=== PATIENT | male | born 1955 | race Caucasian/White ===

== ENCOUNTER 2016-12-24 09:45 | Emergency (ER) | payer OTHER ==
[2016-12-24 09:47] VITALS: BP 148/69; PULSE 130; RESP 30; TEMP 98.2; O2SAT 98
[2016-12-24] MEDS ORDERED: HYDROmorphone HCL PF 1 MG/ML VIAL IV PUSH ONE (10:15)
--- NOTE | 2016-12-24 10:31 | PD ---
HPI Chief Complaint: GI Complaint Time Seen by Provider: 10:12 Travel History International Travel<30 days: No Contact w/Intl Traveler<30days: No History of Present Illness HPI This is a 61-year-old male who presents to the emergency department with a 1-1/ 2 year history of severe pain in his rectum and in his penis, intermittent, worse after bowel movements, sharp, feeling like a spasm. He says he's seen multiple specialists for this in the past but they can ever figure out what it is. He says that he has seen 7 GI doctors and they've done sigmoidoscopies and colonoscopies but haven't been able to find anything. He also has seen a urologist who diagnosed him with an enlarged prostate but otherwise doesn't see any etiology of his pain. He went to the [facility] over the summer but they weren't able to figure out what it was. He says he was just discharged yesterday from [facility] Past Medical History Medical History: Denies Significant Hx Past Surgical History Appendectomy: Yes Social History Alcohol Use: No Tobacco Use: No Substance Use: No Allergies-Medications (Allergen,Severity, Reaction): Coded Allergies: No Known Allergies (Unverified , 12/24/16) Reported Meds & Prescriptions Reported Meds & Active Scripts Active No Active Prescriptions or Reported Medications Review of Systems Except as stated in HPI: all other systems reviewed are Neg Physical Exam Narrative GENERAL: Screaming and thrashing and pain SKIN: Warm and dry. HEAD: Atraumatic. Normocephalic. EYES: Pupils equal and round. No injection or drainage. ENT: Moist mucous membranes NECK: Trachea midline. CARDIOVASCULAR: Regular rate and rhythm. No murmur appreciated. RESPIRATORY: Clear to auscultation. Breath sounds equal bilaterally. GASTROINTESTINAL: Abdomen soft, diffusely tender, tender to palpation along the rectum and perirectal area as well : Tender to palpation along the scrotum as well as the penis, otherwise genitals are normal in appearance MUSCULOSKELETAL: No obvious deformities. NEUROLOGICAL: Awake and alert. No obvious cranial nerve deficits. Moving all extremities. PSYCHIATRIC: Appropriate mood and affect; insight and judgment normal. Data Data Last Documented VS Vital Signs Date Time Temp Pulse Resp B/P Pulse Ox O2 Delivery O2 Flow Rate FiO2 12/24/16 12:49 97.8 81 17 130/76 98 Room Air Orders Complete Blood Count With Diff (12/24/16 10:14) Comprehensive Metabolic Panel (12/24/16 10:14) Lactic Acid (12/24/16 10:14) ^ Insert Iv (12/24/16 10:14) Us Testicles W Doppler (12/24/16 ) Urinalysis - C+S If Indicated (12/24/16 10:14) ^ Insert Iv (12/24/16 10:14) Hydromorphone Pf Inj (Dilaudid Pf Inj) (12/24/16 10:15) Sodium Chlor 0.9% 1000 Ml Inj (Ns 1000 M (12/24/16 11:15) Lorazepam Inj (Ativan Inj) (12/24/16 11:30) Cath For Specimen (12/24/16 12:22) Labs Laboratory Tests Test 12/24/16 10:27 White Blood Count 6.7 TH/MM3 Red Blood Count 4.75 MIL/MM3 Hemoglobin 15.0 GM/DL Hematocrit 42.1 % Mean Corpuscular Volume 88.6 FL Mean Corpuscular Hemoglobin 31.6 PG Mean Corpuscular Hemoglobin 35.7 % Concent Red Cell Distribution Width 13.1 % Platelet Count 261 TH/MM3 Mean Platelet Volume 8.3 FL Neutrophils (%) (Auto) 80.2 % Lymphocytes (%) (Auto) 13.1 % Monocytes (%) (Auto) 6.2 % Eosinophils (%) (Auto) 0.0 % Basophils (%) (Auto) 0.5 % Neutrophils # (Auto) 5.3 TH/MM3 Lymphocytes # (Auto) 0.9 TH/MM3 Monocytes # (Auto) 0.4 TH/MM3 Eosinophils # (Auto) 0.0 TH/MM3 Basophils # (Auto) 0.0 TH/MM3 CBC Comment DIFF FINAL Differential Comment Sodium Level 129 MEQ/L Potassium Level 4.1 MEQ/L Chloride Level 96 MEQ/L Carbon Dioxide Level 21.7 MEQ/L Anion Gap 11 MEQ/L Blood Urea Nitrogen 8 MG/DL Creatinine 1.02 MG/DL Estimat Glomerular Filtration 74 ML/MIN Rate Random Glucose 102 MG/DL Lactic Acid Level 2.9 mmol/L Calcium Level 8.8 MG/DL Total Bilirubin 0.8 MG/DL Aspartate Amino Transf 30 U/L (AST/SGOT) Alanine Aminotransferase 37 U/L (ALT/SGPT) Alkaline Phosphatase 60 U/L Total Protein 7.7 GM/DL Albumin 4.1 GM/DL MDM Medical Decision Making Medical Screen Exam Complete: Yes Emergency Medical Condition: Yes Interpretation(s) Afebrile, tachycardic, hypertensive No leukocytosis Mild hyponatremia Lactic acid is 2.9 Last 24 hours Impressions Scrotum Ultrasound 12/24/16 0000 Signed Impressions: Service Date/Time: December 10:47 - CONCLUSION: 1. No abnormality is identified to explain the chronic testicle pain. No acute finding is identified. 2. Small bilateral hydroceles. Bari Parker MD Differential Diagnosis Testicular torsion, prostatitis, perirectal abscess Narrative Course This is a 61-year-old male who presents to the emergency department with severe pain in his penis that goes to his rectum. He's had it for years. He is squirming in the bed from discomfort. He was placed in a monitor and an IV was established. Labs were obtained which were reassuring with a mildly elevated lactic acid which is likely in the setting of some dehydration. An ultrasound of the testicles was obtained which was unremarkable. Patient reports he's had multiple CT scans in the past by don't think that would add to his workup today. I did speak to the on-call [facility] physician and they gave me some information regarding the patient's history. It looks like this is been going on for at least 3 years he has seen Dr. Palmer as well as the other GI group in [facility]. They've done anorectal manometry and he's been diagnosed with pelvic floor dysfunction and proctalgia fugax. He has been prescribed nifedipine cream and nerve blocks has been performed. I don't think an inpatient workup is going to benefit this patient and I don't think he would benefit from IV opiates or any additional controlled substance pain medication. He needs to follow up as an outpatient. Patient will be discharged home. Diagnosis Primary Impression: Chronic pelvic pain in male Patient Instructions: General Instructions Additional Instructions: If you develop severe or worsening abdominal pain, fever>100.4, persistent vomiting or inability to eat or drink return to the emergency department immediately. Follow up with your primary care physician in 1-2 days for a check-up. Med/Other Pt SpecificInfo: No Change to Meds Scripts No Active Prescriptions or Reported Meds Disposition: 01 DISCHARGE HOME Condition: Stable Farnaz Maria MD Dec 24, 2016 10:31
[2016-12-24 10:42] LABS: AUTOMATED NEUTROPHIL # 5.3 TH/MM3 (1.8-7.7); BASOPHIL % 0.5 % (0.0-2.0); HEMATOCRIT 42.1 % (39.0-51.0); LYMPH % 13.1 % (9.0-44.0); LYMPHOCYTE # 0.9 TH/MM3 (1.0-4.8); MEAN CELL VOLUME 88.6 FL (80.0-100.0); MEAN CORPUSCULAR HEMOGLOBIN 31.6 PG (27.0-34.0); MEAN CORPUSCULAR HGB CONC 35.7 % (32.0-36.0); MONO % 6.2 % (0.0-8.0); NEUT % 80.2 % (16.0-70.0); PLATELET COUNT 261 TH/MM3 (150-450); RED BLOOD COUNT 4.75 MIL/MM3 (4.50-5.90); RED CELL DISTRIBUTION WIDTH 13.1 % (11.6-17.2); WHITE BLOOD COUNT 6.7 TH/MM3 (4.0-11.0)
[2016-12-24 10:43] LABS: HEMO FLAGS DIFF FINAL
[2016-12-24 10:57] LABS: ALT (GPT) 37 U/L (12-78); ANION GAP 11 MEQ/L (5-15); AST (GOT) 30 U/L (15-37); BICARBONATE 21.7 MEQ/L (21.0-32.0); BLOOD UREA NITROGEN 8 MG/DL (7-18); CHLORIDE 96 MEQ/L (98-107); GLOMERULAR FILTRATION RATE 74 ML/MIN (>89); POTASSIUM 4.1 MEQ/L (3.5-5.1); SODIUM (NA) 129 MEQ/L (136-145)
[2016-12-24 10:59] LABS: ALKALINE PHOSPHATASE 60 U/L (45-117); TOTAL BILIRUBIN ADULT 0.8 MG/DL (0.2-1.0)
[2016-12-24 11:00] VITALS: BP 127/77; PULSE 78; RESP 18; O2SAT 99
[2016-12-24] MEDS ORDERED: SODIUM CHLOR 0.9% 1000 ML INJ 1,000 ML IV SCH (11:15)
[2016-12-24] MEDS ORDERED: LORazepam 2 MG/ML VIAL IM ONE (11:30)
--- NOTE | 2016-12-24 12:20 | RADRPT ---
EXAM DATE/TIME: 12/24/2016 10:47 [facility] COMPARISON: No previous studies available for comparison. INDICATIONS : Pain and pressure in penis, rectum and testicles for over 1 year worst when having a bowel movement. MEDICAL HISTORY : Testicle pain. Enlarged prostate. SURGICAL HISTORY : Appendectomy. Sigmoidoscopy. Colonoscopy. ENCOUNTER: Initial ACUITY: 1 day PAIN SCORE: 10/10 LOCATION: Bilateral testicles. MEASUREMENTS: RIGHT TESTICLE: 3.6 x 3.9 x 2.1 cm LEFT TESTICLE: 3.5 x 2.0 x 4.1 cm FINDINGS: RIGHT TESTICLE: Homogeneous echotexture without intra or extratesticular mass. Blood flow is symmetric and within no rmal limits. No varicocele. There is a small hydrocele. Epididymis is within normal limits. LEFT TESTICLE: Homogeneous echotexture without intra or extratesticular mass. Blood flow is symmetric and within no rmal limits. No varicocele. There is a small hydrocele. Epididymis contains a 5 mm simple cyst but is otherwise within normal limits. SCROTUM: Within normal limits. CONCLUSION: 1. No abnormality is identified to explain the chronic testicle pain. No acute finding is identified. 2. Small bilateral hydroceles. Bari Parker MD on December 24, 2016 at 12:16 Board Certified Radiologist. This report was verified electronically.
[2016-12-24 12:49] VITALS: BP 130/76; PULSE 81; RESP 17; TEMP 97.8; O2SAT 98
[2016-12-24 13:20] VITALS: BP 130/77; TEMP 97.8
== END 2016-12-24 13:20 | disposition home or self-care (01) ==
LOC: NEPC 09:45
DX: G89.29 Other chronic pain (principal); R10.2 Pelvic and perineal pain
CPT/HCPCS: 76870; 80053; 83605; 85025; 93975; 96361; 96372; 96374; 99284; J1170; J2060; J7030; P9612